=== PATIENT | male | born 1975 ===

== ENCOUNTER 2018-08-03 09:12 | Emergency (ER) | payer OTHER ==
[2018-08-03 09:29] VITALS: O2SAT 99
[2018-08-03 09:30] VITALS: BMI 30.9
--- NOTE | 2018-08-03 09:46 | ED PDOC ---
HPI: Headache Time Seen by Provider: 08/03/18 09:35 Chief Complaint (Nursing): Headache Chief Complaint (Provider): Headache History Per: Patient History/Exam Limitations: no limitations Onset/Duration Of Symptoms: Other (x1 year) Associated Symptoms: denies: Blurred Vision, Extremity Weakness Additional Complaint(s): 43 year old male presents to the ED complaining of a headache. Patient reports headache began about a year ago with noises at the back of his head. About 6 months ago, he intermittently had pain with a feeling his head will explode which occurred at night when he sleeps. Denies fever, vision deficits, vomiting, weakness, numbness, or gait problems. He states he did visit a doctor but no studies were done there for the headache. Denies head injury or taking any medications for headache. PMD: [facility] Past Medical History Reviewed: Historical Data, Nursing Documentation, Vital Signs Vital Signs: Last Vital Signs Temp 98.4 F 08/03/18 09:27 Pulse 70 08/03/18 09:27 Resp 20 08/03/18 09:27 BP 135/90 08/03/18 09:27 Pulse Ox 99 08/03/18 09:27 - Medical History PMH: Hypercholesterolemia, Hyperlipidemia - Surgical History Surgical History: No Surg Hx - Family History Family History: States: Unknown Family Hx - Social History Current smoker - smoking cessation education provided: No Alcohol: None Drugs: Denies - Home Medications Home Medications: Ambulatory Orders Medication Instructions Recorded Acetaminophen [Acetaminophen Extra 2 tab PO Q6 PRN #24 tablet 06/07/16 Strength] Docusate [Colace] 100 mg PO BID PRN #20 cap 06/07/16 Hydrocortisone 2.5% (Rectal) 30 applic DE BID #1 tube 06/07/16 [Anusol-HC] - Allergies Allergies/Adverse Reactions: Allergies Allergy/AdvReac Type Severity Reaction Status Date / Time No Known Allergies Allergy Verified 08/03/18 09:34 Review of Systems ROS Statement: Except As Marked, All Systems Reviewed And Found Negative Constitutional: Negative for: Fever Eyes: Negative for: Vision Change Gastrointestinal: Negative for: Vomiting Musculoskeletal: Negative for: Other (head injury) Neurological: Positive for: Headache. Negative for: Weakness, Numbness, Other (gait problems) Physical Exam - Reviewed Nursing Documentation Reviewed: Yes Vital Signs Reviewed: Yes - Physical Exam Appears: Positive for: Non-toxic, No Acute Distress Head Exam: Positive for: ATRAUMATIC, NORMAL INSPECTION, NORMOCEPHALIC Skin: Positive for: Normal Color, Warm, Dry Eye Exam: Positive for: Normal appearance Neck: Positive for: Normal, Painless ROM Cardiovascular/Chest: Positive for: Regular Rate, Rhythm Respiratory: Positive for: Normal Breath Sounds. Negative for: Wheezing, Respiratory Distress Extremity: Positive for: Normal ROM Neurologic/Psych: Positive for: Alert, Oriented, Gait (steady). Negative for: Motor/Sensory Deficits - ECG O2 Sat by Pulse Oximetry: 99 (RA) Pulse Ox Interpretation: Normal - Progress Re-evaluation Time: 12:19 Condition: Re-examined, Improved Medical Decision Making Medical Decision Making: Initial Impression: Recurrent headache Differential includes migraine, tension headache, and brain mass. Initial Plan: --CT head --Accucheck 10:[address] FINDINGS: HEMORRHAGE: No intracranial hemorrhage. BRAIN: Normal bo-white matter differentiation and density are appreciated throughout the cerebrum and cerebellum with the brainstem appearing unremarkable as well. There is no mass effect. There is no suspicious extra-axial fluid collection and the midline brain anatomy appears diffusely unremarkable. VENTRICLES: Unremarkable. No hydrocephalus. CALVARIUM: Unremarkable. PARANASAL SINUSES: Unremarkable as visualized. No significant inflammatory changes. MASTOID AIR CELLS: Unremarkable as visualized. No inflammatory changes. OTHER FINDINGS: None. IMPRESSION: Unremarkable unenhanced CT of the Head. Scribe Attestation: Documented by Charles Concepcion acting as a scribe for Joaquina Caballero MD. Provider Scribe Attestation: All medical record entries made by the Scribe were at my direction and personally dictated by me. I have reviewed the chart and agree that the record accurately reflects my personal performance of the history, physical exam, medical decision making, and the department course for this patient. I have also personally directed, reviewed, and agree with the discharge instructions and disposition. Disposition - Clinical Impression Clinical Impression: Headache - Patient ED Disposition Is Patient to be Admitted: No Doctor Will See Patient In The: Office Counseled Patient/Family Regarding: Studies Performed, Diagnosis, Need For Followup - Disposition Referrals: [facility] [Outside] Disposition: Routine/Home Disposition Time: 12:19 Condition: GOOD Additional Instructions: Puede ronny tylenol paradolor de mariana. Tienes que seguir con tu medico in 4-5 key. CEDRIC NIETO, thank you for letting us take care of you today. Your provider was Joaquina Caballero MD and you were treated for HEADACHE. The emergency medical care you received today was directed at your acute symptoms. If you were prescribed any medication, please fill it and take as directed. It may take several days for your symptoms to resolve. Return to the Emergency Department if your symptoms worsen, do not improve, or if you have any other problems. Please contact your doctor or call one of the physicians/clinics you have been referred to that are listed on the Patient Visit Information form that is in cluded in your discharge packet. Bring any paperwork you were given at discharge with you along with any medications you are taking to your follow up visit. Our treatment cannot replace ongoing medical care by a primary care provider outside of the emergency department. Thank you for allowing the [facility] team to be part of your care today. If you had an X-Ray or CT scan: A Radiologist will review the ED reading if any change in treatment is needed we will contact you. If you had a blood, urine, or wound culture: It will take several days for the results, if any change in treatment is needed we will contact you. If you had an STI test: It will take 48 hours for the results. Please call after 1 week if you have not heard back. Instructions: Headache, Adult (DC) Print Language: [place]
--- NOTE | 2018-08-03 10:56 | CT ---
Date of service: 08/03/2018 PROCEDURE: CT HEAD WITHOUT CONTRAST. HISTORY: headache COMPARISON: None available. TECHNIQUE: Axial computed tomography images were obtained through the head/brain without intravenous contrast. Radiation dose: Total exam DLP = 885.93 mGy-cm. This CT exam was performed using one or more of the following dose reduction techniques: Automated exposure control, adjustment of the mA and/or kV according to patient size, and/or use of iterative reconstruction technique. FINDINGS: HEMORRHAGE: No intracranial hemorrhage. BRAIN: Normal bo-white matter differentiation and density are appreciated throughout the cerebrum and cerebellum with the brainstem appearing unremarkable as well. There is no mass effect. There is no suspicious extra-axial fluid collection and the midline brain anatomy appears diffusely unremarkable. VENTRICLES: Unremarkable. No hydrocephalus. CALVARIUM: Unremarkable. PARANASAL SINUSES: Unremarkable as visualized. No significant inflammatory changes. MASTOID AIR CELLS: Unremarkable as visualized. No inflammatory changes. OTHER FINDINGS: None. IMPRESSION: Unremarkable unenhanced CT of the Head.
[2018-08-03 12:41] VITALS: BP 128/76; PULSE 77; RESP 18; TEMP 97.9
== END 2018-08-03 12:40 | disposition home or self-care (01) ==
LOC: H.ER 09:12
DX: R51 Headache (principal); E78.00 Pure hypercholesterolemia, unspecified